=== PATIENT | female | born 1985 | race Asian ===

== ENCOUNTER 2021-07-20 00:25 | Outpatient (CLI) | payer MEDICAID, SELFPAY ==
--- NOTE | 2021-07-20 06:30 | DI.US_ITS ---
Exam(s) US AXILLA RT EXAM: US AXILLA RT CLINICAL HISTORY: enlarged lymph node since Covid #2 shot in February,r59.9 TECHNIQUE: Ultrasound right axilla performed using standard protocol. COMPARISON: No exams were available for comparison FINDINGS: As per request, this study was limited to the axilla. Breast was not scanned. There are multiple reactive appearing lymph nodes in the right axilla. All exhibit normal fatty micheal . The largest lymph node right axilla measures 1.8 x 0.8 x 2.6 cm IMPRESSION: Multiple slightly prominent lymph nodes in the right axilla. These appear reactive. DATA REPOSITORY:
== END 2021-07-20 00:45 ==
PROVIDERS: PCP Internal Medicine; Visit Provider Nurse Practitioner
DX: R59.0 Localized enlarged lymph nodes (principal)
CPT/HCPCS: 76642

== ENCOUNTER 2021-07-20 02:42 | Outpatient (CLI) | payer MEDICAID, SELFPAY ==
[2021-07-20 08:49] LABS: Absolute Basophil Count 0.02 10^3/uL (0.0-0.2); Absolute Lymphocyte Count 1.05 10^3/uL (1.2-3.4); Absolute Monocyte Count 0.41 10^3/uL (0.1-0.8); Absolute Neutrophil Count 1.32 10^3/uL (1.2-6.7); Basophils % 0.7; Eosinophils % 3.4; HCT 39.6 % (36.0-46.0); HGB 12.7 g/dL (11.2-15.7); Lymphocytes % 36.2; MCH 29.4 pg (27.0-33.0); MCHC 32.1 % (32.0-36.0); MCV 91.7 fL (80-95); MPV 9.2 fL (8.0-11.0); Monocytes % 14.1; Neutrophils % 45.6; Nucleated RBC 0 %; Platelet Count 192 10^3/uL (130-400); RBC 4.32 10^6/uL (3.93-5.22); RDW 12.2 % (11.7-14.6); RDW-SD 41.4 fL
[2021-07-20 09:50] LABS: ALT 29 U/L (14-59); AST 18 U/L (15-37); Albumin 3.9 g/dL (3.4-5.0); Alkaline Phosphatase 39 U/L (46-116); Anion Gap 8.7 mmol/L (3-11); BUN 13 mg/dL (7-18); Bilirubin, Total 0.5 mg/dL (0.2-1.0); CO2 30.3 mmol/L (21.0-32.0); CREATININE 0.5 mg/dL (0.55-1.02); Calcium 8.9 mg/dL (8.5-10.1); Chloride 103 mmol/L (98-107); Glucose 97 mg/dL (74-106); Potassium 3.9 mmol/L (3.5-5.1); Sodium 142 mmol/L (136-145)
[2021-07-21 14:17] LABS: HBc IgM Ab, S Negative (Negative)
== END 2021-07-20 02:43 | disposition home or self-care (01) ==
LOC: LBO 02:42
PROVIDERS: Nurse Practitioner; PCP Internal Medicine; Visit Provider Internal Medicine
DX: R59.9 Enlarged lymph nodes, unspecified (principal); J45.909 Unspecified asthma, uncomplicated; B19.10 Unspecified viral hepatitis B without hepatic coma
CPT/HCPCS: 36415; 80053; 85025; 86705

== ENCOUNTER 2021-08-03 13:56 | Outpatient (REF) | payer MEDICAID, SELFPAY ==
--- NOTE | 2021-08-03 11:40 | PAPFT_PTH ---
PATIENT: Jose Ortega LOC: [facility] U#:[id number] AGE/SX: 35/F ROOM: RE08/03/[address]: Marcela Lopez APRN : 1985 BED: DIS: 08/03/2021 SPEC #: [id number] RECD: 08/03/21 17:44 STATUS: SHIRA REPamela #: [id number] KRISTIN: 08/03/21 11:[address]: Marcela Lopez DEPT: [facility] Cytology RECD BY: Keren Barger Tissues: 1 - CX/ENDOCX FOR PAP SMEARS Procedures: PAP THIN PREP/[facility] Screening Comments: [id number] (UNSATISFACTORY FOR EVALUATION)
== END 2021-08-03 13:57 | disposition home or self-care (01) ==
LOC: LBN 13:56
PROVIDERS: PCP Nurse Practitioner; Visit Provider Nurse Practitioner
DX: Z12.4 Encounter for screening for malignant neoplasm of cervix (principal); R87.615 Unsatisfactory cytologic smear of cervix
CPT/HCPCS: 88142

== ENCOUNTER 2021-08-17 17:56 | Outpatient (REF) | payer MEDICAID, SELFPAY ==
--- NOTE | 2021-08-17 14:30 | PAPFT_PTH ---
PATIENT: Jose Ortega LOC: [facility] U#:[id number] AGE/SX: 35/F ROOM: RE08/17/[address]: Marcela Lopez APRN : 1985 BED: DIS: 08/17/2021 SPEC #: [id number] RECD: 08/17/21 18:10 STATUS: SHIRA REPamela #: [id number] KRISTIN: 08/17/21 14:[address]: Marcela Lopez DEPT: [facility] Cytology RECD BY: Keren Barger Tissues: 1 - CX/ENDOCX FOR PAP SMEARS Procedures: PAP THIN PREP/[facility] Screening HPV DNA PROBE Comments: [id number]
== END 2021-08-17 17:57 | disposition home or self-care (01) ==
LOC: LBN 17:56
PROVIDERS: PCP Nurse Practitioner; Visit Provider Nurse Practitioner
DX: Z12.4 Encounter for screening for malignant neoplasm of cervix (principal); Z11.51 Encounter for screening for human papillomavirus (HPV)
CPT/HCPCS: 88142; 87624

== ENCOUNTER 2022-04-26 03:54 | Outpatient (CLI) | payer MEDICAID, SELFPAY ==
[2022-04-27 12:51] LABS: HBs Antibody, Qual Negative (See Note); HBs Antibody, Quant <3.1 mIU/mL (See Note); Hepatitis B Core Antibody Positive (Negative); Hepatitis B surface Ag Positive (Negative); Hepatitis C Ab w Rflx HCV PCR Negative (Negative)
== END 2022-04-26 03:55 | disposition home or self-care (01) ==
LOC: LBO 03:54
PROVIDERS: Absent Provider Nurse Practitioner; PCP Nurse Practitioner; Visit Provider Nurse Practitioner
DX: B18.1 Chronic viral hepatitis B without delta-agent (principal)
CPT/HCPCS: 36415; 86704; 86706; 86803; 87340

== ENCOUNTER 2024-02-22 05:03 | Outpatient (CLI) | payer OTHER, SELFPAY ==
[2024-02-22 08:48] LABS: Abs Immature Grans 0.01 10^3/uL (0.0-0.06); Absolute Basophil Count 0.03 10^3/uL (0.0-0.2); Absolute Eosinophil Count 0.08 10^3/uL (0.0-0.7); Absolute Lymphocyte Count 1.27 10^3/uL (1.2-3.4); Absolute Monocyte Count 0.47 10^3/uL (0.1-0.8); Absolute Neutrophil Count 2.51 10^3/uL (1.2-6.7); Basophils % 0.7 %; Eosinophils % 1.8 %; HCT 41.9 % (36.0-46.0); HGB 13.5 g/dL (11.2-15.7); Immature Grans % 0.2 %; Lymphocytes % 29.1 %; MCH 29.5 pg (27.0-33.0); MCHC 32.2 % (32.0-36.0); MCV 92 fL (80-95); Monocytes % 10.8 %; Neutrophils % 57.4 %; RBC 4.58 10^6/uL (3.93-5.22); RDW 12.5 % (11.7-14.6); RDW-SD 41.8 fL; WBC 4.37 10^3/uL (4.4-10.8)
[2024-02-22 09:41] LABS: ALT 40 U/L (14-59); AST 22 U/L (15-37); Albumin 3.8 g/dL (3.4-5.0); Alkaline Phosphatase 44 U/L (46-116); Anion Gap 2.9 mmol/L (3-11); BUN 13 mg/dL (7-18); Bilirubin, Total 0.5 mg/dL (0.2-1.0); CO2 31.1 mmol/L (21.0-32.0); CREATININE 0.6 mg/dL (0.55-1.02); Calculated LDL 106 mg/dL (<100); Chloride 102 mmol/L (98-107); Cholesterol 185 mg/dL (<200); Estimated GFR 117.02 (mL/min/1.73m2); Glucose 101 mg/dL (74-106); HDL Cholesterol 70 mg/dL (40-60); Potassium 3.6 mmol/L (3.5-5.1); Sodium 136 mmol/L (136-145); Total Protein 8.3 g/dL (6.4-8.2); Triglyceride 48 mg/dL (<150)
[2024-02-22 09:49] LABS: Bilirubin, Direct 0.1 mg/dL (0.0-0.2)
[2024-02-22 10:47] LABS: Diff Comment PLT Morph Reviewed; RBC Morphology Normal
== END 2024-02-22 05:04 | disposition home or self-care (01) ==
LOC: LBO 05:03
PROVIDERS: Absent Provider Nurse Practitioner; PCP Nurse Practitioner; Referring Provider Nurse Practitioner; Visit Provider Nurse Practitioner
DX: K58.9 Irritable bowel syndrome, unspecified (principal); B18.1 Chronic viral hepatitis B without delta-agent; Z13.220 Encounter for screening for lipoid disorders
CPT/HCPCS: 36415; 80053; 80061; 80076; 85025